=== PATIENT | male | born 1990 | race Two or more races ===

== ENCOUNTER 2024-10-04 22:01 | Emergency (ER) | payer SELFPAY ==
[~2024-10-04] VITALS: Ht 172.7 cm; Wt 110.5 kg
--- NOTE | 2024-10-04 22:46 | ED.PDOC ---
History of Present Illness HPI Comments 33 y/o M presents with c/o headache, dizziness, nausea, and poor appetite, today. Patient endorses on unprovoked onset of persisting headache for 1x week, with additional onset of remaining aforementioned symptoms, today. Patient admits to Advil medication use to no relief or improvement of symptoms. He geronimo es having any vision or speech changes, weakness, vomiting, diarrhea, fever, or other associated symptoms or modifiers at this time. headache is slowly progressive, not worst at onset Chief Complaint: Headache Time Seen by MD: 22:20 Reviewed Notes: Nurses Notes, Medications, Allergies Allergies: Coded Allergies: NO KNOWN ALLERGIES (Unverified , 10/04/24) Information Source: Patient Mode of Arrival: Ambulatory Severity: Moderate Timing: Weeks Duration: Since onset Prehospital treatment: None Past Medical History Past Medical History (Other): obesity Surgical History: Denies all surgeries Family History Family History: Unknown Social History Smoker: Non-Smoker Alcohol: Denies ETOH Use Drugs: Denies Drug Use Lives In: Home Gastrointestinal: reports: nausea, poor appetite Neurological: reports: dizziness, headache All Other Systems: Reviewed and Negative (negative unless otherwise stated above or in HPI) Physical Exam General Appearance: No Apparent Distress, Obese HEENT: Normal ENT Inspection, Pharynx Normal, TMs Normal Neck: Full Range of Motion, Non-Tender, Normal, Normal Inspection Respiratory: Chest Non-Tender, Lungs Clear, No Accessory Muscle Use, No Respiratory Distress, Normal Breath Sounds Cardiovascular: No Edema, No JVD, No Murmur, No Gallop, Normal Peripheral Pulses, Regular Rate/Rhythm Breast Exam: Deferred Gastrointestinal: No Organomegaly, Non Tender, No Pulsatile Mass, Normal Bowel Sounds, Soft Genitalia: Deferred Pelvic: Deferred Rectal: Deferred Extremities: No calf tenderness, Normal capillary refill, Normal inspection, Normal range of motion, Non-tender, No pedal edema Musculoskeletal : Apperance: Normal Neurologic: Alert, environmental protection forester II-XII nml as Tested, No Motor Deficits, Normal Affect, Normal Mood, No Sensory Deficits Cerebellar Function: Normal Reflexes: Normal Skin: Dry, Normal Color, Warm Lymphatic: No Adenopathy Was a procedure done? Was a procedure done?: No Differential Dx Considerations may include: viral syndrome, vertigo, electrolyte imbalance, dehydration, tension headache, cluster migraine, migraines, tension headache, intracranial mass, intracranial bleed. CO poisoning X-Ray, Labs, Meds, VS Vital Signs Date Time Temp Pulse Resp B/P (MAP) Pulse Ox O2 Delivery O2 Flow Rate FiO2 10/04/24 23:14 76 16 97 Room Air* 0 21 10/04/24 23:14 98.3 82 16 138/97 (111) 97 98.3 10/04/24 22:25 98.2 70 16 142/94 (110) 95 Lab Test 10/04/24 23:47 Range/Units Influenza Type A Antigen Pending Influenza Type B Antigen Pending SARS-CoV-2 Antigen (Rapid) Pending Current Medications Medications (Trade) Dose Ordered Sig/Iwona Route Start Time Stop Time Status Last Admin Acetaminophen/ Hydrocodone Bitart ([place] 5/325MG Tab) 1 tab ONCE ONCE PO 10/04/24 22:30 10/04/24 22:32 DC 10/04/24 23:13 Time of 1ST Reevaluation: 22:50 Reevaluation 1ST: Unchanged Reevaluation 2ND: Resolved Patient Education/Counseling: Diagnosis, Treatment, Prognosis, Need For Follow Up Family Education/Counseling: No Family Present Additional Information The following tests were ordered, and results were reviewed by me: CT head I reviewed and agreed with the following test results read by other providers: CT I discussed treatment and results with medical personnel pt denies any other family members with same, which makes CO unlikely. his head ct is unremarkable. he does not have pneumonia. pt is stable for discharge Departure 1 Departure Time of Disposition: 00:00 Impression: Primary Impression: Headache Qualified Codes: R51.9 - Headache, unspecified Disposition: 01 HOME / SELF CARE / HOMELESS Condition: Good e-Prescriptions Ibuprofen Micronized (MOTRIN TABLET) 600 Mg Tb 600 MG PO TID PRN, #40 TAB *Black box warning-NSAIDS can increase risk of [place] & hypertension, GI irritation, ulceration, bleed, perferation. Do not use post cardiac surgery. Use short duration/lowest effective dose. Prov: MELYSSA VEGA MD 10/05/24 Discharged With: Self Critical Care Note Critical Care Time?: No Stability Stability form required: No Heart Score Heart Score: Heart Score Response (Comments) Value History N/A 0 EKG N/A 0 Age N/A 0 Risk Factors N/A 0 Troponin N/A 0 Total 0 I personally scribed for MELYSSA VEGA MD ([email or web address]) on 10/04/24 at 22:46. Electronically submitted by Levi Sheikh ([email or web address]). MELYSSA VEGA MD Oct 04, 2024 22:46
[2024-10-04] MEDS: HYDROcodone-ACET 5/325MG TAB PO ONE (23:13)
[2024-10-04 23:14] VITALS: BP 138/97; PULSE 76; RESP 16; TEMP 98.3; O2SAT 97
--- NOTE | 2024-10-04 23:21 | DVH ---
EXAM: CT HEAD WITHOUT CONTRAST INDICATION: headache TECHNIQUE: CT of the head without intravenous contrast. Radiation Dose : 1. Head: CT Dose: CTDI volume is 60.17 mGy. Dose-length product is 1084.72 mGy*cm The dose indicators for CT are the volume Computed Tomography (CT) Dose Index (CTDIvol) and the Dose Length Product (DLP), and are measured in units of mGy and mGy-cm, respectively. These indicators are not patient dose, but values generated from the CT scanner acquisition factors. The report includes radiation exposure data for exposures received during this examination. COMPARISON: None FINDINGS: There is no evidence of acute intracranial hemorrhage, extra-axial collection, mass effect, midline s hift, herniation or hydrocephalus. The ventricles, sulci and cisterns are age appropriate. The baird-white differentiation is intact. Patchy periventricular and subcortical white matter hypoattenuation is nonspecific but may be related to small vessel ischemic disease. The visualized paranasal sinuses and mastoid air cells are clear. The surrounding soft tissues and osseous structures are unremarkable. IMPRESSION: No acute intracranial abnormality.
--- NOTE | 2024-10-04 23:47 | DVH ---
CHEST RADIOGRAPH Indication: cp Technique: Single frontal view of the chest was obtained Comparison: None FINDINGS: Lines and Tubes: None Lungs: Clear Pleura: No effusion. No pneumothorax. Cardiomediastinal contours: Unremarkable Bones: Unremarkable IMPRESSION: Clear lungs.
[2024-10-05] MEDS ORDERED: IBU600T PO (00:01)
[2024-10-05 00:20] LABS: COVID19 ANTIGEN SOFIA FIA NEGATIVE (NEGATIVE); Rapid Influenza A Negative (Negative); Rapid Influenza B Negative (Negative)
== END 2024-10-05 00:30 | disposition home or self-care (01) ==
LOC: ER 22:01
DX: R51.9 Headache, unspecified (principal); R42 Dizziness and giddiness; R11.0 Nausea; E66.9 Obesity, unspecified; Z20.822 Contact with and (suspected) exposure to COVID-19
CPT/HCPCS: 36415; 70450; 71045; 87426; 87804